=== PATIENT | male | born 1970 | race Caucasian/White ===

== ENCOUNTER 2019-08-29 22:31 | Emergency (ER) | payer SELFPAY ==
--- OUTSIDE RECORDS SUMMARY | 2019-08-29 22:34 | XMS REPORT | Continuity of Care Document ---
:1970 Author Organization [facility] t Address [address] [place] [address] Care Team Providers Name Role Phone ANASTASIA SALES Attending Clinician Unavailable Problems Condition Condition Condition Status Onset Resolution Last Treating Co mments Source Name Details Category Date Date Treatment Clinician Date Lumbar Lumbar Problem Active 2016-[address] [facility] radiculopa radiculopa 1-13 Marguerite kes - thy thy 00:00: Memoria 00 l (LUF/LI V/SA) Acute low Acute low Problem Active 2016-[address] [facility] back pain back pain 1-13 [facility] - 00:00: Memoria 00 l (LUF/LI V/SA) Low back Low back Problem [facility] 2016[facility] ([facility] V/SA) Lumbar Lumbar Problem Active 2016-[address] [facility] radiculopa radiculopa 1-08 Marguerite kes - thy thy 00:00: Memoria 00 l (LUF/LI V/SA) Low back Low back Problem Active 2016[facility] - [facility]: Mem[facility] (LUF/LI V/SA) Allergies, Adverse Reactions, Alerts This patient has no known allergies or adverse reactions. Medications Ordered Filled Start Stop Current Ordering Indication Dosage Frequency Signature Comments Components Source Medication Medication Date Date Medication? Clinician (SIG) Name Name Diclofenac Diclofenac 2016-03 Yes 50mg TID [facility] Potassium Potassium 1-08 [facility] - 50 MG Oral 50 MG Oral 00:00: M emoria Tablet Tablet 00 l (LUF/LI V/SA) Methocarbam Methocarbam 2016-03 Yes 750mg TID [facility] ol 750 MG ol 750 MG 1-08 [facility] - Oral Tablet Oral Tablet 00:00: Memoria 00 l (LUF/LI V/SA) Prednisone Prednisone Yes 60mg QD [facility] - [facility]oria l (LUF/LI V/SA) Vital Signs Vital Name Observation Time Observation Value Comments Source Body Temperature 2017-02-09 20:26:00 97.4 F [facility] (LUF/JESUS MANUEL/SA) Respiratory Rate 2017-02-09 20:26:00 20 /min [facility] (LUF/JES[facility] MANUEL/SA) O2% BldC Oximetry 2017-02-09 20:26:00 98 % [facility] (LUF/JESUS MANUEL/SA) BP Systolic 2017-02-09 20:26:00 133 mm[Hg] [facility] (LUF/JESUS MANUEL/SA) BP Diastolic 2017-02-09 20:26:00 84 mm[Hg] [facility] (LUF/JESUS MANUEL/SA) Height 2017-02-09 20:26:00 76 in [facility] (LUF/JESUS MANUEL/SA) Weight Measured 2017-02-09 20:26:00 216.05 lbs [facility] (LUF/JESUS MANUEL/SA) BMI (Body Mass Index) 2017-02-09 20:26:00 26.3 [facility] (LUF/JESUS MANUEL/SA) Body Temperature 2017-02-04 17:19:00 98 F [facility] (LUF/JESUS MANUEL/SA) Respiratory Rate 2017-02-04 17:19:00 20 /min [facility] (LUF/JESUS MANUEL/SA) O2% BldC Oximetry 2017-02-04 17:19:00 99 % [facility] (LUF/JESUS MANUEL/SA) BP Systolic 2017-02-04 17:19:00 152 mm[Hg] [facility] (LUF/JESUS MANUEL/SA) BP Diastolic 2017-02-04 17:19:00 97 mm[Hg] [facility] (LUF/JESUS MANUEL/SA) Height 2017-02-04 17:19:00 76 in [facility] (LUF/JESUS MANUEL/SA) Weight Measured 2017-02-04 17:19:00 216.05 lbs [facility] (LUF/JESUS MANUEL/SA) BMI (Body Mass Index) 2017-02-04 17:19:00 26.3 [facility] (LUF/JESUS MANUEL/SA) Procedures This patient has no known procedures. Encounters Start End Encounter Admission Attending Care Care Encounter Source Date/Time Date/Time Type Type Clinicians Facility Department ID 2017-02-09 2017-02-09 STRAIN MÓNICA, [facility] [id number] [facility] [address] 20:19:00 20:59:00 [facility] [address] (LUF[place] [address] 2017-02-04 2017-02-04 STRAIN BETH, [facility] [id number] [facility] 16:50:00 18:51:00 [facility] [address] (LUF[place] [address] Results This patient has no known results.
[2019-08-29 23:37] LABS: Absolute Lymphocytes (CBC) 2.8 K/uL (0.7-4.9); Basophils % 0.9 % (0-1.3); Lymphocytes % 31.5 % (15.3-44.8); MPV 8.1 fL (7.6-11.3); RBC Red Blood Cell Count 5.13 M/uL (4.33-5.43)
[2019-08-29] MEDS ORDERED: MORPHINE 2 MG/ML SYR ONE (23:50)
[2019-08-29] MEDS ORDERED: ONDANSETRON 4 MG/2 ML VIAL ONE (23:50)
[2019-08-29] MEDS ORDERED: NA CHLORIDE 0.9% 1,000 ML ONE (23:51)
[2019-08-29 23:55] LABS: ALT/SGPT 23 U/L (12-78); AST/SGOT 14 U/L (15-37); Alkaline Phosphatase 62 U/L (45-117); BUN Blood Urea Nitrogen 10 mg/dL (7-18); Bicarbonate 26 mmol/L (21-32); Bilirubin Direct 0.1 mg/dL (0-0.2); Bilirubin Total 0.3 mg/dL (0.2-1.0); Glucose Level 92 mg/dL (74-106); Magnesium 2.4 mg/dL (1.8-2.4); NT PRO-BNP 34 pg/mL (<125); Potassium 3.9 mmol/L (3.5-5.1); Protein, Total 7.7 g/dL (6.4-8.2); Sodium Level 138 mmol/L (136-145); Troponin (Emerg Dept Use Only) < 0.02 ng/mL (0.0-0.045)
--- NOTE | 2019-08-29 23:57 | RAD REPORT ---
EXAM DESCRIPTION: RAD - Chest Single View - 08/29/2019 11:52 pm CLINICAL HISTORY: CHEST PAIN Chest pain. COMPARISON: No comparisons FINDINGS: Portable technique limits examination quality. The lungs are grossly clear. The heart is normal in size. No displaced fractures. IMPRESSION: No acute intrathoracic process suspected.
--- NOTE | 2019-08-30 00:17 | ER ---
Nurse's Notes [facility] Name: Broderick Mcfarlane Age: 49 yrs Sex: Male : 1970 Arrival Date: 08/29/2019 Time: 22:37 Bed 14 Private MD: Diagnosis: Chest pain. Anxiety disorder Presentation: 08/28 22:44 Chief complaint: Patient states: CP and SOB began at 1930. Coronavirus screen: Proceed ll1 with normal triage. Patient denies a cough. Patient denies shortness of breath or difficulty breathing. Patient denies measured and/or subjective temperature greater than 100.4F prior to today's visit. Patient denies travel on a cruise ship or to a country the [facility] currently lists as an affected area. Patient denies contact with known and/or suspected case of COVID-19. Ebola Screen: Patient denies travel to an Ebola-affected area in the 21 days before illness onset. Initial Sepsis Screen: Does the patient meet any 2 criteria? HR > 90 bpm. Risk Assessment: Do you want to hurt yourself or someone else? Patient reports no desire to harm self or others. Onset of symptoms was August 29, 2019. 22:44 Method Of Arrival: Ambulatory ll1 22:44 Acuity: LUPE 3 ll1 22:50 Initial Sepsis Screen: Does the patient have a suspected source of infection? No. vc Patient's initial sepsis screen is negative. Triage Assessment: 22:49 General: Appears in no apparent distress. Behavior is calm, cooperative, appropriate vc for age. Pain: Complains of pain in chest. Historical: - Allergies: 22:45 No Known Allergies; ll1 - PMHx: 22:45 Umbilical hernia; ll1 - PSHx: 22:45 Hernia repair; ll1 - Immunization history:: Flu vaccine is up to date. - Social history:: Smoking status: Patient reports the use of cigarette tobacco products, smokes one pack cigarettes per day. Patient uses alcohol, admits to "couple of beers" a day. Patient/guardian denies using street drugs. Screenin:55 Abuse screen: Denies threats or abuse. Nutritional screening: No deficits noted. vc Tuberculosis screening: No symptoms or risk factors identified. Fall Risk None identified. Assessment: 23:00 General: Appears in no apparent distress. uncomfortable, Behavior is calm, cooperative, vc appropriate for age. Pain: Complains of pain in chest Pain does not radiate. Pain began suddenly. Neuro: Level of Consciousness is awake, alert, obeys commands, Oriented to person, place, time, situation. Cardiovascular: Capillary refill < 3 seconds Patient's skin is warm and dry. Rhythm is sinus rhythm. Respiratory: Airway is patent Respiratory effort is even, unlabored, Respiratory pattern is regular, symmetrical. GI: No signs and/or symptoms were reported involving the gastrointestinal system. : No signs and/or symptoms were reported regarding the genitourinary system. 23:00 Respiratory: Reports shortness of breath at rest. vc 08/29 00:00 Reassessment: Patient appears in no apparent distress at this time. Patient and/or vc family updated on plan of care and expected duration. Pain level reassessed. Patient is alert, oriented x 3, equal unlabored respirations, skin warm/dry/pink. 00:30 Reassessment: Patient appears in no apparent distress at this time. Patient and/or vc family updated on plan of care and expected duration. Pain level reassessed. Patient is alert, oriented x 3, equal unlabored respirations, skin warm/dry/pink. Patient denies pain at this time. Patient states feeling better. Patient states symptoms have improved. Vital Signs: 08/28 22:44 BP 132 / 90; Pulse 104; Resp 17; Temp 98.0; Pulse Ox 96% ; Weight 102.06 kg; Height 6 ll1 ft. 5 in. (195.58 cm); Pain 9/10; 08/29 00:00 BP 133 / 75; Pulse 91; Resp 20; Pulse Ox 98% on R/A; vc 08/28 22:44 Body Mass Index 26.68 (102.06 kg, 195.58 cm) ll1 ED Course: 08/28 22:37 Patient arrived in ED. cf2 22:45 Triage completed. ll1 22:46 Arm band placed on Patient placed in an exam room, on a stretcher. ll1 22:50 Patient has correct armband on for positive identification. Bed in low position. Call vc light in reach. Side rails up X 1. lead sustainability specialist on. Pulse ox on. NIBP on. 22:50 No provider procedures requiring assistance completed. Patient maintains SpO2 vc saturation greater than 95% on room air. 22:58 Qureshi, Pin, MD is Attending Physician. pkl 23:15 Inserted saline lock: 22 gauge in right antecubital area, using aseptic technique. vc Blood collected. 23:31 Giselle Hawkins, LIO is Primary Nurse. vc 23:52 XRAY Chest (1 view) In Process Unspecified. EDMS 08/29 00:36 IV discontinued, intact, bleeding controlled, No redness/swelling at site. Pressure mg2 dressing applied. Administered Medications: Discontinued: NS 0.9% 1000 ml IV at 125 ml/hr continuous 00:15 Drug: NS 0.9% 1000 ml Route: IV; Rate: 125 ml/hr; Site: right antecubital; mg2 00:36 Not Given (Patient Refused): morphine 2 mg IVP once; RASS on ADMIN: Combtv4, Very mg2 Agttd3, Agttd2, Rstlss1, AlertClm0, Drwsy-1, Lt Sdtn-2, Mod Sdtn-3, Dp Sdtn-4, UnArsble-5 00:36 Not Given (Patient Refused): Zofran (Ondansetron) 4 mg IVP once; over 2 minutes mg2 Outcome: 00:17 Discharge ordered by MD. pkl 00:36 Discharged to home ambulatory. mg2 00:36 Condition: stable 00:36 Discharge instructions given to patient, Instructed on discharge instructions, follow up and referral plans. medication usage, Demonstrated understanding of instructions, follow-up care, medications, Prescriptions given X 1. 00:40 Patient left the ED. vc Signatures: Dispatcher [employer] EDDC Kevin Qureshi MD MD pkl Lon Sharma RN RN mg2 Olya Lopez cf2 Giselle Hawkins RN RN vc Wing Ramos RN RN ll1 Corrections: (The following items were deleted from the chart) 02:48 00:52 Patient left the ED. vc vc
--- NOTE | 2019-08-30 00:18 | EDPHYS ---
Physician Documentation [facility] Name: Broderick Mcfarlane Age: 49 yrs Sex: Male : 1970 Arrival Date: 08/29/2019 Time: 22:37 Bed 14 Private MD: ED Physician Kevin Qureshi HPI: 08/28 23:06 This 49 yrs old Male presents to ER via Ambulatory with complaints of Chest pkl Pain, Shortness Of Breath. 23:06 The patient or guardian reports chest pain that is located primarily in the epigastric pkl area. Onset: just prior to arrival, 2 hour(s) ago. The pain does not radiate. Associated signs and symptoms: Pertinent positives: shortness of breath. The chest pain is described as sharp. Patient said he is under a lot of stress. Historical: - Allergies: 22:45 No Known Allergies; ll1 - PMHx: 22:45 Umbilical hernia; ll1 - PSHx: 22:45 Hernia repair; ll1 - Immunization history:: Flu vaccine is up to date. - Social history:: Smoking status: Patient reports the use of cigarette tobacco products, smokes one pack cigarettes per day. Patient uses alcohol, admits to "couple of beers" a day. Patient/guardian denies using street drugs. ROS: 23:06 Eyes: Negative for injury, pain, redness, and discharge, ENT: Negative for injury, pkl pain, and discharge, Neck: Negative for injury, pain, and swelling. 23:06 Cardiovascular: Positive for chest pain. 23:06 Respiratory: Positive for shortness of breath. 23:06 Abdomen/GI: Negative for abdominal pain, nausea, vomiting, and diarrhea. 23:06 Back: Negative for acute changes. 23:06 : Negative for urinary symptoms. 23:06 MS/extremity: Negative for acute changes. 23:06 Skin: Negative for rash. 23:06 Neuro: Negative for altered mental status. Exam: 23:06 Head/Face: Normocephalic, atraumatic. Eyes: Pupils equal round and reactive to light, pkl extra-ocular motions intact. Lids and lashes normal. Conjunctiva and sclera are non-icteric and not injected. Cornea within normal limits. Periorbital areas with no swelling, redness, or edema. ENT: Nares patent. No nasal discharge, no septal abnormalities noted. Tympanic membranes are normal and external auditory canals are clear. Oropharynx with no redness, swelling, or masses, exudates, or evidence of obstruction, uvula midline. Mucous membranes moist. Neck: Trachea midline, no thyromegaly or masses palpated, and no cervical lymphadenopathy. Supple, full range of motion without nuchal rigidity, or vertebral point tenderness. No Meningismus. Chest/axilla: Normal chest wall appearance and motion. Nontender with no deformity. No lesions are appreciated. Cardiovascular: Regular rate and rhythm with a normal S1 and S2. No gallops, murmurs, or rubs. Normal PMI, no JVD. No pulse deficits. Respiratory: Lungs have equal breath sounds bilaterally, clear to auscultation and percussion. No rales, rhonchi or wheezes noted. No increased work of breathing, no retractions or nasal flaring. Abdomen/GI: Soft, non-tender, with normal bowel sounds. No distension or tympany. No guarding or rebound. No evidence of tenderness throughout. Back: No spinal tenderness. No costovertebral tenderness. Full range of motion. Skin: Warm, dry with normal turgor. Normal color with no rashes, no lesions, and no evidence of cellulitis. MS/ Extremity: Pulses equal, no cyanosis. Neurovascular intact. Full, normal range of motion. Neuro: Awake and alert, GCS 15, oriented to person, place, time, and situation. Cranial nerves II-XII grossly intact. Motor strength 5/5 in all extremities. Sensory grossly intact. Cerebellar exam normal. Normal gait. Vital Signs: 22:44 BP 132 / 90; Pulse 104; Resp 17; Temp 98.0; Pulse Ox 96% ; Weight 102.06 kg; Height 6 ll1 ft. 5 in. (195.58 cm); Pain 9/10; 08/29 00:00 BP 133 / 75; Pulse 91; Resp 20; Pulse Ox 98% on R/A; vc 08/28 22:44 Body Mass Index 26.68 (102.06 kg, 195.58 cm) ll1 MDM: 08/28 22:58 Patient medically screened. pkl 08/29 00:11 Data reviewed: vital signs, nurses notes, lab test result(s), EKG, radiologic studies, pkl plain films. ED course: Patient feeling better. Discussed La. and X' rays results with patient. Advised to follow up with PCP in 2 to 3 days. Patient understood instructions. 08/28 23:06 Order name: Basic Metabolic Panel; Complete Time: 00:08 pkl 08/28 23:06 Order name: CBC with Diff; Complete Time: 00:08 pkl 08/28 23:06 Order name: LFT's; Complete Time: 00:08 pkl 08/28 23:06 Order name: Magnesium; Complete Time: 00:08 pkl 08/28 23:06 Order name: NT PRO-BNP; Complete Time: 00:08 pkl 08/28 23:06 Order name: PT-INR; Complete Time: 00:08 pkl 08/28 23:06 Order name: Troponin (emerg Dept Use Only); Complete Time: 00:08 pkl 08/28 23:06 Order name: XRAY Chest (1 view) pkl 08/28 23:06 Order name: EKG; Complete Time: 23:07 pkl 08/28 23:06 Order name: Cardiac monitoring; Complete Time: 00:30 pkl 08/28 23:06 Order name: D-Dimer; Complete Time: 00:08 pkl 08/28 23:06 Order name: EKG - Nurse/Tech; Complete Time: 00:30 pkl 08/28 23:06 Order name: IV Saline Lock; Complete Time: 00:30 pkl 08/28 23:06 Order name: Labs collected and sent; Complete Time: 00:30 pkl 08/28 23:06 Order name: O2 Per Protocol; Complete Time: 00:30 pkl 08/28 23:06 Order name: O2 Sat Monitoring; Complete Time: 00:30 pkl Administered Medications: Discontinued: NS 0.9% 1000 ml IV at 125 ml/hr continuous 00:15 Drug: NS 0.9% 1000 ml Route: IV; Rate: 125 ml/hr; Site: right antecubital; mg2 00:36 Not Given (Patient Refused): morphine 2 mg IVP once; RASS on ADMIN: Combtv4, Very mg2 Agttd3, Agttd2, Rstlss1, AlertClm0, Drwsy-1, Lt Sdtn-2, Mod Sdtn-3, Dp Sdtn-4, UnArsble-5 00:36 Not Given (Patient Refused): Zofran (Ondansetron) 4 mg IVP once; over 2 minutes mg2 Disposition: 08/30/19 00:17 Discharged to Home. Impression: Chest pain. Anxiety disorder. - Condition is Stable. - Prescriptions for Ativan 1 mg Oral Tablet - take 1 tablet by ORAL route 2 times per day As needed; 10 tablet. - Medication Reconciliation Form, Thank You Letter, Antibiotic Education, Prescription Opioid Use, Work release form form. - Follow up: Private Physician; When: 2 - 3 days; Reason: Re-evaluation by your physician. - Problem is new. - Symptoms have improved. Signatures: Dispatcher [employer] EDMS eKvin Qureshi MD MD pkl Lon Sharma, RN RN mg2 Giselle Hawkins RN RN Wing Myers RN RN ll1 Corrections: (The following items were deleted from the chart) 00:52 00:17 08/30/2019 00:17 Discharged to Home. Impression: Chest pain. Anxiety disorder. vc Condition is Stable. Forms are Medication Reconciliation Form, Thank You Letter, Antibiotic Education, Prescription Opioid Use. Follow up: Private Physician; When: 2 - 3 days; Reason: Re-evaluation by your physician. Problem is new. Symptoms have improved. pkl
[2019-08-30 00:58] VITALS: BP 132/90; TEMP 98; O2SAT 96
--- NOTE | 2019-08-30 19:25 | EKG ---
Test Date: 2019-08-30 Test Time: 00:00:03 Principal Clerk: ROBER MEASUREMENT RESULTS: Intervals: Rate: 75 AL: 148 QRSD: 110 QT: 388 QTc: 433 [place]: P: 59 AL: 148 QRS: -73 T: 82 INTERPRETIVE STATEMENTS: Normal sinus rhythm Left axis deviation Incomplete right bundle branch block Abnormal ECG No previous ECG available for comparison Electronically Signed On 08-30-19 19:23:59 CDT by Erik Riggins
== END 2019-08-30 00:52 | disposition home or self-care (01) ==
LOC: ER 22:31
DX: R07.9 Chest pain, unspecified (principal); F41.9 Anxiety disorder, unspecified; F17.210 Nicotine dependence, cigarettes, uncomplicated
CPT/HCPCS: 36415; 71045; 80048; 80076; 83735; 83880; 84484; 85025; 85379; 85610; 93005; 99285; J2270; J2405; J7030